=== PATIENT | male | born 1980 | race Caucasian/White ===

== ENCOUNTER 2019-06-27 11:10 | Emergency (ER) | payer OTHER ==
[~2019-06-27] VITALS: Ht 170.2 cm; Wt 96.5 kg
[~2019-06-27 11:10] MED LIST: ERGO500013 PO; FAMO-96 PO; FENO145T37 PO; LISI-313 PO; MECL12.574 PO; METF100010 PO; OMEP40CA38 PO; SIMV20TA PO
[2019-06-27 11:12] VITALS: Ht 170.2 cm; Wt 96.5 kg
[2019-06-27] MEDS ORDERED: morphine 4 MG/ML VIAL IV STA (12:57)
[2019-06-27] MEDS ORDERED: ONDANSETRON 4 MG INJ IV STA (12:57)
[2019-06-27] MEDS ORDERED: AL HYDROX/MG HYDROX/SIMETH 30 ML CUP PO ONE (13:00)
[2019-06-27] MEDS ORDERED: LIDOCAINE 2% VISC 10 ML CUP PO ONE (13:00)
[2019-06-27 15:30] VITALS: BP 124/82; PULSE 79; RESP 16
== END 2019-06-27 15:55 | disposition home or self-care (01) ==
LOC: E/R 11:10
DX: R10.13 Epigastric pain (principal); E11.9 Type 2 diabetes mellitus without complications; F17.210 Nicotine dependence, cigarettes, uncomplicated; R42 Dizziness and giddiness; Z79.84 Long term (current) use of oral hypoglycemic drugs
CPT/HCPCS: 70450; 80053; 83690; 85025; 93005; J2405; Z7610; 36415; 96374